=== PATIENT | male | born 1990 | race Caucasian/White ===

== ENCOUNTER 2018-10-19 22:13 | Emergency (ER) | payer BC ==
--- NOTE | 2018-10-19 22:46 | EDM.PDOC ---
ED HPI GENERAL MEDICAL PROBLEM - General Chief Complaint: Laceration Stated Complaint: CUT ON LEFT HAND Time Seen by Provider: 10/19/18 22:32 - History of Present Illness INITIAL COMMENTS - FREE TEXT/NARRATIVE: HISTORY AND PHYSICAL: History of present illness: The patient is a healthy 28-year-old male who is unsure of his last tetanus shot and is right-hand dominant and presents after cutting his left hand with a knife while trying to open of a burrito. The patient says he had no systemic complaints and was in his usual state of good health when these events occurred. Patient says he has no numbness or tingling or inability to move his fingers and there are no other injuries other than the one at the palmar surface of his left hand. Review of systems: As per history of present illness and below otherwise all systems reviewed and negative. Past medical history: As per history of present illness and as reviewed below otherwise noncontributory. Surgical history: As per history of present illness and as reviewed below otherwise noncontributory. Social history: No reported history of drug or alcohol abuse. Family history: As per history of present illness and as reviewed below otherwise noncontributory. Physical exam: Temp: Well-developed well-nourished man who is nontoxic and vital signs were noted by me HEENT: Atraumatic, normocephalic, negative for conjunctival pallor or scleral icterus, mucous membranes moist, throat clear, neck supple, nontender, trachea midline. Lungs: Clear to auscultation, breath sounds equal bilaterally, chest nontender. Heart: S1S2, regular rate and rhythm no overt murmurs Abdomen: Deferred Pelvis: Deferred Genitourinary: Deferred. Rectal: Deferred. Extremities: Atraumatic with full range of motion of all extremities with the exception of the left palmar surface of the hand. Patient can move all 5 digits on the left hand and can flex and extend against resistance as well as oppose the thumb. On the thenar eminence there is a linear 5 cm laceration that extends to the thenar muscles but does not appear to violate them. There is no active bleeding. There is one very small 0.5 cm laceration which is superficial and sits just lateral to the larger laceration and does not need suture repair. There is no soft tissue swelling and there is no gross tenderness in the area. Neurovascular unremarkable. Neuro: Awake, alert, oriented. Cranial nerves II through XII unremarkable. Cerebellum unremarkable. Motor and sensory unremarkable throughout. Exam nonfocal. Diagnostics: [] Therapeutics: Tdap, wound care, bacitracin and gauze, Steri-Strips Procedure note: After the wound was copiously irrigated by nursing 1% lidocaine without epinephrine was infused in a local fashion and the wound was explored. No foreign bodies were appreciated. I did have the patient range of motion the thumb including flexion and opposition to assess the musculature and there appears to be no violation of the muscle. There is some depth to the wound more medially but again there does not appear to be any violation of deeper structures. The skin edges were reapproximated using a total number of # 11 sutures of 4-0 chromic in a simple interrupted fashion. The wound was of simple complexity. The patient tolerated the procedure well and hemostasis was achieved. Steri-Strips were applied by nursing and A dressing was applied by nursing. There Were no complications Impression: []Left hand laceration Definitive disposition and diagnosis as appropriate pending reevaluation and review of above. Left Hand Pain Score (Numeric/FACES): 1 - Related Data Allergies Allergy/AdvReac Type Severity Reaction Status Date / Time No Known Allergies Allergy Verified 10/19/18 22:43 Home Meds: Home Meds . [No Known Home Meds] 10/19/18 [History] ED ROS GENERAL - Review of Systems Review Of Systems: ROS reveals no pertinent complaints other than HPI. ED EXAM, SKIN/RASH Exam: See Below (See dictation) Course - Vital Signs Last Recorded V/S: Last Vital Signs Temp 37.2 C 10/19/18 22:39 Pulse 108 H 10/19/18 22:39 Resp 20 10/19/18 22:39 BP 156/77 H 10/19/18 22:39 Pulse Ox 98 10/19/18 22:39 - Orders/Labs/Meds Orders: Active Orders 24 hr Category Date Time Status Communication Order [RC] STAT Care 10/19/18 22:33 Active Vaccines to be Administered [RC] PER UNIT ROUTINE Care 10/19/18 22:32 Active Meds: Medications Discontinued Medications Generic Name Dose Route Start Last Admin Trade Name Freq PRN Reason Stop Dose Admin Bacitracin 1 dose 10/19/18 22:32 10/19/18 22:51 Bacitracin Oint 1 Gm TOP 10/19/18 22:33 1 dose ONETIME ONE Administration Diphtheria/Tetanus/Acell Pertussis 0.5 ml 10/19/18 22:32 10/19/18 22:50 Adacel IM 10/19/18 22:33 0.5 ml .ONCE ONE Administration Lidocaine HCl Confirm 10/19/18 22:30 10/19/18 22:51 Xylocaine-Mpf 1% Administered 10/19/18 22:31 3 mls/hr Dose Administration 10 mls @ as directed .ROUTE .STK-MED ONE Lidocaine HCl 10 ml 10/19/18 22:29 10/19/18 22:54 Xylocaine 1% INJECT 10/19/18 22:30 Not Given ONETIME ONE Departure - Departure Time of Disposition: 23:16 Disposition: Home, Self-Care 01 Condition: Good Clinical Impression: Laceration of left hand Qualifiers: Encounter type: initial encounter Foreign body presence: without foreign body Qualified Code(s): S61.412A - Laceration without foreign body of left hand, initial encounter - Discharge Information Referrals: PCP,None [Primary Care Provider] - Forms: ED Department Discharge Additional Instructions: The following information is given to patients seen in the emergency department who are being discharged to home. This information is to outline your options for follow-up care. We provide all patients seen in our emergency department with a follow-up referral. The need for follow-up, as well as the timing and circumstances, are variable depending upon the specifics of your emergency department visit. If you don't have a primary care physician on staff, we will provide you with a referral. We always advise you to contact your personal physician following an emergency department visit to inform them of the circumstance of the visit and for follow-up with them and/or the need for any referrals to a consulting specialist. The emergency department will also refer you to a specialist when appropriate. This referral assures that you have the opportunity for followup care with a specialist. All of these measure are taken in an effort to provide you with optimal care, which includes your followup. Under all circumstances we always encourage you to contact your private physician who remains a resource for coordinating your care. When calling for followup care, please make the office aware that this follow-up is from your recent emergency room visit. If for any reason you are refused follow-up, please contact the [facility] emergency department at and ask to speak to the emergency department charge nurse. [facility] [address] [place] [phone] Please keep the dressing that was applied in the ED on for the next 24 hours then remove and cleanse with mild soap and water pat dry and apply bacitracin or Neosporin. Keep the wound open to air as much as possible and cover with dry gauze when you need to and do not use Band-Aids. Take the Keflex you have been given via [employer] as a prophylactic antibiotic for the depth of this wound. The sutures that were placed will dissolve over the next few weeks or you can have them removed either here in the ED or with the hand specialist. Please call and schedule a follow-up appointment with our hand specialist as you choose next week for further care and evaluation. Return to ER as needed and as discussed - My Orders Last 24 Hours: My Active Orders 10/19/18 22:32 Vaccines to be Administered [RC] PER UNIT ROUTINE 10/19/18 22:33 Communication Order [RC] STAT - Assessment/Plan Last 24 Hours: My Active Orders 10/19/18 22:32 Vaccines to be Administered [RC] PER UNIT ROUTINE 10/19/18 22:33 Communication Order [RC] STAT
[2018-10-19] MEDS: Diphtheria,Pertussis(Acell),Tetanus Vaccine 0.5 ML Syringe IM ONE (22:50)
[2018-10-19] MEDS: Bacitracin Oint 1 GM U/D Packet TOP ONE (22:51)
[2018-10-19] MEDS: Lidocaine 1% 10 ML MDV INJECT ONE (22:54)
== END 2018-10-19 23:35 | disposition home or self-care (01) ==
LOC: MW.ED 22:13
DX: S61.412A Laceration without foreign body of left hand, initial encounter (principal); Z23 Encounter for immunization; W26.0XXA Contact with knife, initial encounter
CPT/HCPCS: 90471; 90715; 99282-25